=== PATIENT | male | born 1950 | race African-American/Black ===

== ENCOUNTER 2018-07-12 12:28 | Emergency (ER) | payer OTHER, BC ==
[~2018-07-12] VITALS: Ht 182.9 cm; Wt 108.0 kg
[~2018-07-12 12:28] MED LIST: ALENDRONATE SOD40 MG PO; AMLODIPINE BESY10 MG PO; ASPIRIN81 M2 PO; CARVEDILOL12.5 MG PO; CARVEDILOL6.25 MG PO; COREG6.25 MG PO; CRESTOR40 MG PO; FISH OIL 1,001000 M2 PO; GLUCOTROL10 MG PO; HYDROCHLOROTH12.5 M1 PO; HYDROCODONE-AP1 EAC6 PO; IRON325 PO; KEFLEX500 MG PO; LANTUS100 UNIT/M SUBQ; LISINOPRIL2.5 M1 PO; LISINOPRIL20 MG PO; METFORMIN HCL1000 MG PO; NOVOLOG100 UNIT/1 PO; PACERONE 200 M200 M1 PO; PLAVIX 75 MG TA75 M1 PO; SENOKOT-S1 TA1 PO; SPIRONOLACTONE25 MG PO; UNICOMPLEX M TA1 TA1 PO; VIAGRA25 MG PO; VITAMIN D-32000 UNIT PO; ZESTORETIC 20-1 EAC3 PO
[2018-07-12] MEDS ORDERED: BACTRIM DS TAB1 EACH PO (13:51)
== END 2018-07-12 14:11 | disposition home or self-care (01) ==
LOC: ER 12:28
DX: L03.311 Cellulitis of abdominal wall (principal); E11.9 Type 2 diabetes mellitus without complications; I10 Essential (primary) hypertension; E78.00 Pure hypercholesterolemia, unspecified; Z87.891 Personal history of nicotine dependence

== ENCOUNTER 2018-09-12 03:44 | Emergency (ER) | payer OTHER, BC ==
[~2018-09-12] VITALS: Ht 182.9 cm; Wt 108.9 kg
--- NOTE | ~2018-09-12 | EKG ---
[place] [address] [facility] [place] [address] ELECTROCARDIOGRAM REPORT Name: JOSE CARLOSANNE [facility] [id number] Admission: 09/12/18 Attend Phys: Discharge: 09/12/18 Date of : 52 Report #: [id number] THIS REPORT FOR: //name// [facility] ED Test Date: 2018-09-12 Test Time: 03:57:27 Pat Name: ANNE BRANCH Department: Room: Gender: Bowl Attendant: Helder : 1950 Requested By: Bridgette Wallace Order Number: [id number] MD: Tommie Mckenzie Measurements Intervals [place] Rate: 90 P: 34 AR: 200 QRS: 46 QRSD: 129 T: 18 QT: 367 QTc: 449 Interpretive Statements Sinus rhythm with first-degree AV block Right bundle branch block Baseline wander in lead(s) I,III,aVL,V3 Compared to ECG 04/11/2016 07:01:47 Atrial premature complex(es) no longer present Electronically Signed On 09-12-2018 16:09:02 [place] by Tommie Mckenzie [email or web address] <ELECTRONICALLY SIGNED> By: Tommie Mckenzie MD, FACC 09/12/18 [id number] Tommie Mckenzie MD, [facility] /EPI
[~2018-09-12 03:44] MED LIST changes: +BACTRIM DS TAB1 EACH PO
[2018-09-12] MEDS ORDERED: TRULICITY1.5 MG/0.5 SUBQ (04:15)
[2018-09-12 04:16] LABS: HEMATOCRIT 33.5 % (42.0-52.0); HEMOGLOBIN 11.2 gm/dL (14.0-18.0); MCH 27.8 pg (26.0-34.0); MCHC 33.4 g/dL (28.0-37.0); PLATELET COUNT 240 thou/uL (150-400); RBC 4.04 mil/uL (4.50-6.00); WBC 5.9 thou/uL (4.0-11.0)
[2018-09-12 04:25] LABS: ANION GAP 7 mmol/L (7-16); BUN 25 mg/dL (7-18); CALCIUM 9.4 mg/dL (8.5-10.1); CHLORIDE 105 mmol/L (98-107); CO2 27 mmol/L (21-32); CREATININE 1.5 mg/dL (0.7-1.3); GLUCOSE 119 mg/dL (74-106); POTASSIUM 4.3 mmol/L (3.5-5.1); SODIUM 139 mmol/L (136-145)
[2018-09-12 04:34] LABS: TROPONIN-I <0.06 ng/mL (<0.06)
[2018-09-12 04:43] LABS: ABSOLUTE NEUTROPHILS 2.7 thou/uL (1.4-8.2)
[2018-09-12 04:44] LABS: PLATELET ESTIMATE DECREASED
[2018-09-12 04:45] LABS: POLYCHROMASIA OCCASIONAL
[2018-09-12 05:48] VITALS: BP 135/80
== END 2018-09-12 05:56 | disposition home or self-care (01) ==
LOC: ER 03:44
PROVIDERS: Student in an Organized Health Care Education/Training Program
DX: R00.2 Palpitations (principal); I10 Essential (primary) hypertension; E11.9 Type 2 diabetes mellitus without complications; E78.00 Pure hypercholesterolemia, unspecified; E78.5 Hyperlipidemia, unspecified; Z86.2 Personal history of diseases of the blood and blood-forming organs and certain disorders involving the immune mechanism; Z87.891 Personal history of nicotine dependence; Z79.4 Long term (current) use of insulin

== ENCOUNTER → 2020-03-31 | Outpatient (CLI) | payer OTHER, BC ==
[~2020-03-31] MED LIST changes: +TRULICITY1.5 MG/0.5 SUBQ
== END ==
LOC: SJCVCIMAG 09:46
PROVIDERS: ATTEND Internal Medicine
DX: I65.23 Occlusion and stenosis of bilateral carotid arteries (principal); R94.31 Abnormal electrocardiogram [ECG] [EKG]; I44.0 Atrioventricular block, first degree; I45.10 Unspecified right bundle-branch block; I25.10 Atherosclerotic heart disease of native coronary artery without angina pectoris; I10 Essential (primary) hypertension; E78.5 Hyperlipidemia, unspecified; I73.9 Peripheral vascular disease, unspecified; E11.9 Type 2 diabetes mellitus without complications; Z95.1 Presence of aortocoronary bypass graft; Z79.899 Other long term (current) drug therapy; Z87.891 Personal history of nicotine dependence

== ENCOUNTER 2021-06-21 12:09 | Emergency (ER) | payer OTHER, BC ==
[~2021-06-21] VITALS: Ht 180.3 cm; Wt 119.8 kg
[2021-06-21 12:51] LABS: ABSOLUTE NEUTROPHILS 2.5 thou/uL (1.4-8.2); BASOPHILS 0.6 % (0.0-2.0); EOSINOPHILS 2.6 % (0.0-3.0); HEMATOCRIT 36.7 % (42.0-52.0); HEMOGLOBIN 12.1 gm/dL (14.0-18.0); LYMPHOCYTES 36.9 % (24.0-44.0); MCH 27.8 pg (26.0-34.0); MCV 84.2 fL (80.0-100.0); MONOCYTES 12.7 % (1.0-8.0); PLATELET COUNT 275 thou/uL (150-400); POLYS 47.2 % (36.0-66.0); RBC 4.36 mil/uL (4.50-6.00); RDW 14.3 % (10.5-14.5); WBC 5.3 thou/uL (4.0-11.0)
[2021-06-21 12:52] LABS: URINE BILIRUBIN NEGATIVE (Negative); URINE BLOOD NEGATIVE (Negative); URINE CLARITY CLEAR; URINE COLOR YELLOW; URINE GLUCOSE-RANDOM* 3+ (Negative); URINE KETONES NEGATIVE (Negative); URINE LEUKOCYTES-REFLEX NEGATIVE (Negative); URINE NITRITE-REFLEX NEGATIVE (Negative); URINE PROTEIN (DIPSTICK) NEGATIVE (Negative); URINE UROBILINOGEN 0.2 E.U./dl (0.2-1.0)
[2021-06-21 13:07] LABS: CALCIUM 9.6 mg/dL (8.5-10.1); CREATININE 1.7 mg/dL (0.7-1.3); POTASSIUM 4.6 mmol/L (3.5-5.1)
[2021-06-21 13:12] LABS: ALBUMIN 3.7 g/dL (3.4-5.0); TOTAL BILIRUBIN 0.4 mg/dL (0.2-1.0)
[2021-06-21 15:00] VITALS: BP 134/75
--- NOTE | 2021-06-22 07:33 | EKG ---
[place] [address] [facility] [address] ELECTROCARDIOGRAM REPORT Name: ANNE BRANCH [facility] [id number] Admission: 06/21/21 Attend Phys: Discharge: 06/21/21 Date of : 52 Report #: [id number] [facility] ED Test Date: 2021-06-21 Test Time: 12:56:20 Pat Name: ANNE BRANCH Department: Room: Gender: M Parts Data Writer: KARI : 1950 Requested By: Amauri Baron Order Number: [id number] MD: Tommie Mckenzie Measurements Intervals [place] Rate: 100 P: -36 GA: 219 QRS: 42 QRSD: 130 T: 26 QT: 345 QTc: 445 Interpretive Statements Sinus tachycardia Borderline prolonged GA interval Right bundle branch block Compared to ECG 09/12/2018 03:57:27 No significant change was found Electronically Signed On 06-22-2021 7:33:16 CDT by Tommie Mckenzie [email or web address] <ELECTRONICALLY SIGNED> By: Tommie Mckenzie MD, [facility] 06/22/21 [id number] [id number] Tommie Mckenzie MD, FACC /EPI
== END 2021-06-21 15:01 | disposition home or self-care (01) ==
LOC: ER 12:09
PROVIDERS: Physician Assistant
DX: T85.618A Breakdown (mechanical) of other specified internal prosthetic devices, implants and grafts, initial encounter (principal); E11.9 Type 2 diabetes mellitus without complications; I10 Essential (primary) hypertension; E78.00 Pure hypercholesterolemia, unspecified; Z79.4 Long term (current) use of insulin; Z79.82 Long term (current) use of aspirin; Z79.891 Long term (current) use of opiate analgesic; Z79.899 Other long term (current) drug therapy; Y83.8 Other surgical procedures as the cause of abnormal reaction of the patient, or of later complication, without mention of misadventure at the time of the procedure; Y92.89 Other specified places as the place of occurrence of the external cause